=== PATIENT | female | born 1995 | race Caucasian/White ===

== ENCOUNTER 2018-07-22 18:02 | Emergency (ER) | payer OTHER ==
--- NOTE | 2018-07-22 18:29 | EDPHY ---
General Time Seen by Provider: 07/22/18 18:21 Narrative: CLINICAL IMPRESSION: LEFT DISTAL THUMB LACERATION ASSESSMENT/PLAN: 22-year-old female presents to the emergency department with a laceration to the distal aspect of the left thumb sustained on a kitchen knife at work. Tetanus up-to-date. Distal 2 point discrimination intact, no evidence of deep structure injury. Wound was anesthetized, cleaned and repaired as per chart notes. Wound care discussed, signs and symptoms of infection reviewed, warning signs return to ED sooner outlined and discharge. DIFFERENTIAL DIAGNOSIS: includes but not limited to laceration of tendon or vascular structure, underlying fracture, laceration with retained FB ED PROCEDURES: Laceration Repair Verbal consent obtained by patient. Risks discussed, including but not limited to infection, pain, retained foreign body, need for additional repair, poor cosmetic result, tendon damage, nerve damage, poor wound healing, vascular damage. Alternatives to repair discussed. [place] protocol used to establish correct patient, procedure, equipment, linux support engineer, and site. Anesthesia obtained by Digital block at 1st MCP left hand. Anesthetized with 0.5% bupivacaine without epinephrine. Laceration location left thumb, length 1 cm, depth 2 mm, Repair type simple. Patient was prepped and draped in usual sterile fashion. Hemostasis achieved with direct pressure. Wound explored through full range of motion and entire depth of wound probed and visualized with gloved finger. No suspicion for nerve damage, tendon damage, underlying fracture, vascular damage, foreign body, or contamination. Area was cleansed with Shur-Clens and irrigated with sterile saline as per protocol. No foreign body or material removed. Repair method 5 0 Prolene simple interrupted sutures. Six sutures placed. Well aligned, closely approximated. wound was dressed with bacitracin Band-Aid. Patient tolerated well with no immediate complications. Wound care: Clean and dry x 24 hours, gently clean with soap and water, cover with topical antibiotic ointment/bandage. Suture/Staple removal: 7-10 Days CHIEF COMPLAINT: Laceration to left thumb HPI: 22-year-old [id number] female who works at [employer] presents to the emergency department with an acute laceration to the distal tip of the left thumb sustained on a knife at work. Intact sensation and range of motion. No other injuries. Tetanus reported up-to-date. PAST MEDICAL HISTORY: None reported Pertinent Past Surgical History: None reported Social History: [id number], tetanus up-to-date REVIEW OF SYSTEMS: All other systems negative Constitutional: No fever, no chills Musculoskeletal: No deformity, no joint pain Skin: Distal left thumb laceration Neurological: No sensory loss or weakness, 2 point discrimination intact. PHYSICAL EXAM: General Appearance: Alert, oriented, appropriate for age, cooperative, NAD, well hydrated, non-toxic appearing, VSS, no hypoxia. Neurological: Alert and oriented x 3 Skin: 1 cm lunar laceration to the distal left thumb with fingernail involvement Musculoskeletal: Full range of motion of the thumb, distal 2 point discrimination intact MEDICAL DECISION MAKING: Patient was seen independently. Secondary supervising physician at time of evaluation was Dr. Tom. Diagnosis: Left thumb laceration. New, requires workup Summary: See assessment and plan for summary of ED visit Patient Progress improved, stable for discharge. - History Smoking Status: Never smoked - Objective Vital Signs: Initial Vital Signs Temperature (C) 36.7 C 07/22/18 18:14 Heart Rate 88 07/22/18 18:14 Respiratory Rate 16 07/22/18 18:14 Blood Pressure 149/103 H 07/22/18 18:14 O2 Sat (%) 98 07/22/18 18:14 O2 Delivery Mode Room Air Allergies/Adverse Reactions: No Known Allergies Allergy (Unverified 07/22/18 18:13) Home Medications: Medication Instructions Recorded Levothyroxine [Synthroid 75 mcg 75 mcg PO DAILY06 07/22/18 (*)] Departure - Departure Disposition: Home, Routine, Self-Care Clinical Impression: Laceration of thumb Qualifiers: Encounter type: initial encounter Damage to nail status: with damage Foreign body presence: without foreign body Laterality: left Qualified Code(s): S61.112A - Laceration without foreign body of left thumb with damage to nail, initial encounter Condition: Good Instructions: Laceration (ED) Additional Instructions: DISCHARGE INSTRUCTIONS FROM YOUR DOCTOR Thank you for visiting our emergency department today. You were treated by a physician budget assistant today and your case was reviewed with our ED Attending physician. Please keep in mind that discharge from the emergency department does not mean that there is nothing wrong - it simply means that we have not identified an emergency condition that requires further evaluation or treatment in the hospital. You should always plan to follow up with primary care for re- evaluation of your condition in the next 2-3 days. If you have been referred to a specialist, please call as soon as possible (today or tomorrow) to schedule your follow up appointment at the appropriate time. PLEASE HAVE SUTURES/DORA REMOVED IN 7-10 DAYS. YOU CAN RETURN TO THE EMERGENCY DEPARTMENT OR YOUR PRIMARY CARE FOR SUTURE/STAPLE REMOVAL. AVOID SUBMERGING SUTURES/DORA UNDERWATER FOR PROLONGED PERIOD OF TIME UNTIL REMOVED. KEEP WOUND CLEAN AND DRY, COVER WITH ANTIBIOTIC OINTMENT AND BAND-AID. RETURN TO EMERGENCY DEPARTMENT FOR REDNESS, SWELLING, DISCHARGE, WARMTH TO THE SKIN, OR ANY OTHER CONCERNS FOR INFECTION. People present with illnesses and injuries in different ways, and it is always possible that we have missed something. You may always return for re-evaluation if symptoms worsen or if they are not improving or if you develop new/different symptoms. Again, thank you for choosing our emergency department. We hope that you feel better. Referrals: NONE *PRIMARY CARE P,. [Primary Care Provider] - As per Instructions Junior Calixto, DO [Doctor of Osteopathy] - 1-2 days without fail
[2018-07-22 19:30] VITALS: BP 136/87
== END 2018-07-22 19:30 | disposition home or self-care (01) ==
PROC: 0HQGXZZ Repair Left Hand Skin, External Approach (ICD-10-PCS; principal; 2018-07-22)
DX: S61.112A Laceration without foreign body of left thumb with damage to nail, initial encounter (principal); W26.0XXA Contact with knife, initial encounter; Y99.0 Civilian activity done for income or pay; Y93.G1 Activity, food preparation and clean up